=== PATIENT | female | born 1990 | race American Indian/Alaskan Native ===

== ENCOUNTER 2019-11-18 20:33 | Emergency (ER) | payer MEDICAID ==
[2019-11-18] MEDS ORDERED: AMOXICILLIN/K CLAV 875/125MG TAB PO ONE (22:52)
[2019-11-18] MEDS ORDERED: KETOROLAC 30 MG/1 ML INJ IM ONE (22:52)
[2019-11-18] MEDS ORDERED: dexAMETHasone 20 MG/5 ML VIAL IM ONE (22:52)
[2019-11-18] MEDS ORDERED: ONDANSETRON 4 MG ODT TAB PO ONE (22:52)
--- NOTE | 2019-11-18 22:57 | Emergency Department Report ---
ED General Adult HPI - General Chief complaint: Earache Stated complaint: RIGHT EAR AND TEETH PAIN,DIFF OPENING MOUTH Source: patient Mode of arrival: Ambulatory Limitations: No Limitations - History of Present Illness Initial comments: Patient is a 29-year-old female with no past medical history who presents to the ED with a complaint of acute onset persistent severe right mandibular premolar and molar toothache with swollen and painful gum for the last 5 days, worse in the last 3 days. Patient states that she is unable to open her mouth completely because of severe pain. Patient denies dizziness, headache, chest pain, shortness of breath, fever, chills, nausea, vomiting, sore throat, abdominal pain or hearing loss. MD Complaint: right lower mandibular pain; swollen right mandibular gum -: Sudden, days(s) (5) Location: mouth Radiation: non-radiation Severity scale (0 -10): 7 Quality: aching, sharp, constant Consistency: constant Improves with: none Worsens with: eating Associated Symptoms: denies other symptoms, headaches, loss of appetite. denies: confusion, chest pain, cough, diaphoresis, fever/chills, malaise, nausea/vomiting, rash, seizure, shortness of breath, syncope, weakness, other Treatments Prior to Arrival: none - Related Data Previous Rx's Medication Instructions Recorded Last Taken Type Acetaminophen/Codeine [Tylenol 1 tab PO Q6H PRN #12 tab 11/18/19 Unknown Rx /Codeine # 3 tab] Clindamycin [Clindamycin CAP] 300 mg PO Q8HR #60 capsule 11/18/19 Unknown Rx Ketorolac [Toradol] 10 mg PO Q8H PRN #20 tablet 11/18/19 Unknown Rx Ondansetron [Zofran Odt] 4 mg PO Q6HR PRN #15 tab.rapdis 11/18/19 Unknown Rx predniSONE [Deltasone] 40 mg PO QDAY #10 tab 11/18/19 Unknown Rx Allergies Allergy/AdvReac Type Severity Reaction Status Date / Time No Known Allergies Allergy Unverified 11/18/19 22:29 ED Review of Systems ROS: Stated complaint: RIGHT EAR AND TEETH PAIN,DIFF OPENING MOUTH Other details as noted in HPI Constitutional: denies: chills, fever Eyes: denies: eye pain, eye discharge, vision change ENT: dental pain (right lower jaw pain; dental abscess), other (swollen right mandibular gum; right mandibular premolar and molar gum). denies: ear pain, throat pain Respiratory: denies: cough, shortness of breath, SOB with exertion, SOB at rest, wheezing Cardiovascular: denies: chest pain, palpitations Endocrine: no symptoms reported Gastrointestinal: denies: abdominal pain, nausea, vomiting, diarrhea, constipation, hematemesis, hematochezia Genitourinary: denies: urgency, dysuria, discharge Musculoskeletal: denies: back pain, joint swelling, arthralgia Skin: denies: rash, lesions Neurological: denies: headache, weakness, paresthesias Psychiatric: denies: anxiety, depression Hematological/Lymphatic: denies: easy bleeding, easy bruising ED Past Medical Hx - Past Medical History Previous Medical History?: Yes - Surgical History Past Surgical History?: Yes Hx Cholecystectomy: Yes - Social History Smoking Status: Never Smoker Substance Use Type: None - Medications Home Medications: Home Medications Medication Instructions Recorded Confirmed Last Taken Type Acetaminophen/Codeine [Tylenol 1 tab PO Q6H PRN #12 tab 11/18/19 Unknown Rx /Codeine # 3 tab] Clindamycin [Clindamycin CAP] 300 mg PO Q8HR #60 capsule 11/18/19 Unknown Rx Ketorolac [Toradol] 10 mg PO Q8H PRN #20 tablet 11/18/19 Unknown Rx Ondansetron [Zofran Odt] 4 mg PO Q6HR PRN #15 tab.rapdis 11/18/19 Unknown Rx predniSONE [Deltasone] 40 mg PO QDAY #10 tab 11/18/19 Unknown Rx ED Physical Exam - General Limitations: No Limitations General appearance: alert, in no apparent distress - Head Head exam: Present: atraumatic, normocephalic, normal inspection - Eye Eye exam: Present: normal appearance, PERRL, EOMI Pupils: Present: normal accommodation - ENT ENT exam: Present: mucous membranes moist, TM's normal bilaterally, normal external ear exam, other (swollen tender right mandibular gum; severe right ma ndibular premolar and molar teeth) - Neck Neck exam: Present: normal inspection, full ROM, lymphadenopathy - Respiratory Respiratory exam: Present: normal lung sounds bilaterally. Absent: respiratory distress, wheezes, chest wall tenderness, accessory muscle use, decreased breath sounds - Cardiovascular Cardiovascular Exam: Present: regular rate, normal rhythm, normal heart sounds. Absent: systolic murmur, diastolic murmur, rubs, gallop - GI/Abdominal GI/Abdominal exam: Present: soft, normal bowel sounds. Absent: tenderness, guarding, rebound - Extremities Exam Extremities exam: Present: normal inspection, full ROM, normal capillary refill - Back Exam Back exam: Present: normal inspection, full ROM. Absent: tenderness, muscle spasm, paraspinal tenderness, vertebral tenderness - Neurological Exam Neurological exam: Present: alert, oriented X3, CN II-XII intact, normal gait, reflexes normal - Psychiatric Psychiatric exam: Present: normal affect, normal mood - Skin Skin exam: Present: warm, dry, intact, normal color. Absent: rash ED Course Vital Signs 11/18/19 11/18/19 11/18/19 22:06 23:22 23:52 Temperature 98.7 F Pulse Rate 69 Respiratory 18 20 20 Rate Blood Pressure 117/83 O2 Sat by Pulse 98 Oximetry ED Medical Decision Making - Medical Decision Making This is a 29-year-old female who presented to the ED with complaint of painful swollen right mandibular gum with severe premolar and molar toothache for the last 5 days. In the ED, patient is alert and oriented 3 and is not in any acute distress. Patient was treated in the ED for pain, and also given initial oral antibiotics in the ED. Patient was discharged home on pain medications and oral antibiotics and was given a referral to the [facility] dental clinic for follow-up in 5-7 days. Patient was advised to return to the ED immediately if symptoms get worse. - Differential Diagnosis dental abscess; gingivitis; dental caries Critical care attestation.: If time is entered above; I have spent that time in minutes in the direct care of this critically ill patient, excluding procedure time. ED Disposition Clinical Impression: Dental abscess, Acute gingivitis, Dental caries Disposition: - TO HOME OR SELFCARE Is pt being admited?: No Does the pt Need Aspirin: No Condition: Stable Instructions: Dental Abscess (ED), Dental Caries (ED), Gingivitis (ED) Additional Instructions: Take medication with food, drink plenty of fluids and follow-up with the [facility] dental clinic for further evaluation in 5-7 days. Return to the ED immediately if symptoms get worse. Prescriptions: Clindamycin [Clindamycin CAP] 300 mg PO Q8HR #60 capsule predniSONE [Deltasone] 40 mg PO QDAY #10 tab Ketorolac [Toradol] 10 mg PO Q8H PRN #20 tablet PRN Reason: Pain Acetaminophen/Codeine [Tylenol /Codeine # 3 tab] 1 tab PO Q6H PRN #12 tab PRN Reason: Pain , Severe (7-10) Ondansetron [Zofran Odt] 4 mg PO Q6HR PRN #15 tab.rapdis PRN Reason: Nausea Referrals: [facility] [Outside] - 7-10 days Time of Disposition: 23:03 Print Language: [place]
[2019-11-18 23:21] VITALS: BP 117/83
== END 2019-11-19 00:38 | disposition home or self-care (01) ==
LOC: ED 20:33
DX: K04.7 Periapical abscess without sinus (principal); K02.9 Dental caries, unspecified; K05.00 Acute gingivitis, plaque induced; Z90.49 Acquired absence of other specified parts of digestive tract
CPT/HCPCS: 96372; 99282; J1100; J1885; Q0162